=== PATIENT | male | born 2000 | race Caucasian/White ===

== ENCOUNTER 2022-10-02 17:28 | Emergency (ER) | payer BC | END 2022-10-02 18:09 | disposition home or self-care (01) | LOC: CSHERS 17:28 | DX: S39.012A Strain of muscle, fascia and tendon of lower back, initial encounter (principal); F17.210 Nicotine dependence, cigarettes, uncomplicated; X50.0XXA Overexertion from strenuous movement or load, initial encounter | CPT/HCPCS: 99282 ==

== ENCOUNTER 2022-11-25 11:05 | Emergency (ER) | payer BC | END 2022-11-25 12:16 | disposition left against medical advice (07) | LOC: CSHERS 11:05 | DX: Z53.21 Procedure and treatment not carried out due to patient leaving prior to being seen by health care provider (principal) ==

== ENCOUNTER 2022-11-29 12:09 | Emergency (ER) | payer BC ==
[2022-11-29] MEDS ORDERED: Acetaminophen 325 MG TAB ONE (13:41)
[2022-11-29] MEDS ORDERED: Ibuprofen 200 MG TAB ONE (13:41)
== END 2022-11-29 15:20 | disposition home or self-care (01) ==
LOC: CSHERS 12:09
DX: M51.26 Other intervertebral disc displacement, lumbar region (principal); F17.210 Nicotine dependence, cigarettes, uncomplicated; W11.XXXA Fall on and from ladder, initial encounter
CPT/HCPCS: 72131; 72170